=== PATIENT | male | born 1985 | race Caucasian/White ===

== ENCOUNTER 2019-10-31 01:11 | Outpatient (CLI) | payer OTHER, SELFPAY ==
[2019-10-31 18:19] LABS: SARS-CoV-2 RNA PCR Negative
== END 2019-10-31 01:12 | disposition home or self-care (01) ==
LOC: ANHCOVIDDT 01:11
PROVIDERS: PCP Family Medicine Sports Medicine; Visit Provider Otolaryngology
DX: Z01.812 Encounter for preprocedural laboratory examination (principal); Z20.828 Contact with and (suspected) exposure to other viral communicable diseases
CPT/HCPCS: 87635; C9803; U0003

== ENCOUNTER 2019-11-02 01:32 | Day surgery (SDC) | payer OTHER, SELFPAY ==
[2019-10-24 15:27] VITALS: BMI 23.6
--- NOTE | 2019-11-01 08:16 | PM.IMHP ---
H&P: HPI History of Present Illness Date/Time: 11/01/19 08:16 Chief complaint: Chronic Sinusitis/ Nasal Septal Deviation Narrative: Rito Leon is a 34 year old male With past medical history significant for nasal obstruction largely due to septal deviation inferior turbinate hypertrophy as well as chronic sinusitis with recent imaging demonstrating maxillary anterior ethmoidal and frontal sinonasal mucosal thickening. The patient has tried maximal medical therapy and failed. Patient presents today for operative intervention. Reports no new symptoms and/or provoking palliative factors. Review of Systems Review of Systems: Narrative: see clinic note Constitutional: Constitutional: Denies fatigue, Denies fever(s) and Denies lethargy Eyes: Eyes: Denies blurry vision and Denies change in vision ENT: Reports as per HPI Cardiovascular: Cardiovascular: Denies chest pain Respiratory: Respiratory: Denies cough Endocrine: Endocrine: Denies fatigue Hematologic/Lymphatic: Hematologic/Lymphatic: Denies easy bleeding, Denies easy bruising and Denies lymphadenopathy Allergic/Immunologic: Allergic/Immunologic: Denies seasonal rhinorrhea PMFSH Social History Social History Smoking packs per day: 0.5 Smoking cigarettes per day: 10.0 Years smoked: 14 Smoking pack-years: 7.00 Smoking status: Current every day smoker Tobacco type: cigarettes Spiritual care concerns: No Meds Home Medications and Allergies Home Medications Medication Instructions Recorded Confirmed Type fluticasone propionate 50 1 spray NASAL BID #11.1 ml 10/18/19 10/24/19 Rx mcg/actuation nasal spray,suspension multivitamin 1 tablet PO DAILY 10/24/19 10/24/19 History omega 5-muw-slb-fish oil [[place]-3] 1 cap PO DAILY 10/24/19 10/24/19 History Allergies Allergy/AdvReac Type Severity Reaction Status Date / Time No Known Allergies Allergy Verified 10/24/19 15:28 Exam Narrative: Exam Narrative: See clinic note Const: General: cooperative, healthy appearing, comfortable, well developed and alert HENMT: Head: normal to inspection, normocephalic and atraumatic Ears: hearing grossly normal bilaterally, external ears normal, TM's normal bilaterally and EAC's normal General nose exam: Normal external nose present, Normal nares present and Other nasal findings present ( septal deviation and inferior turbinate hypertrophy) Face and sinus: normal facial exam Mouth: Yes Normal oral and palatal mucosa present, Yes lip normal, Yes tongue normal, Yes oropharynx normal and Yes moist mucous membranes Teeth and gingiva: dentition normal and gingiva normal Throat: posterior oropharynx normal, tonsils normal and uvula midline Eyes: General: appearance normal, both eyes and all related structures Periorbital: periorbital findings normal Eyelids: eyelids normal Conjunctivae: conjunctivae normal Sclera: sclerae normal Neck: Neck: normal visual inspection, full ROM and no lymphadenopathy Thyroid: thyroid normal Lymphatic: no lymphadenopathy noted Resp: Effort & Inspection: normal respiratory effort and able to speak in complete sentences Cardio: Jugular venous distension: no JVD Neuro: Cranial nerves: Yes CN's II-XII intact bilaterally Assessment and Plan Assessment and plan (1) Nasal septal deviation: Code(s): J34.2 - Deviated nasal septum Status: Acute Assessment and Plan: plan for OR for endoscopic assisted septoplasty inferior turbinate reduction bilateral maxillary antrostomies bilateral anterior ethmoidectomies and bilateral frontal sinusotomies most likely all without tissue tissue removal. the risks and benefits were explained in great detail to the patient including septal perforation turbinate regrowth change in vision CSF leak and the need for further operative procedures. The patient voiced understanding of these risks and signed the appropriate consent forms. (2) Chronic sinusitis: Cod
[2019-11-02] VITALS (7 sets, daily range): BP systolic 126–155; BP diastolic 82–97; PULSE 60–87; RESP 10–16; TEMP 36–36.5; O2SAT 92–100
[2019-11-02] MEDS: ACETAMINOPHEN 500 MG TABLET 1000 MG PO (06:31)
--- NOTE | 2019-11-02 06:59 | WPDANESEPPF ---
Anes - Initial Pre Proc Eval Procedure: Operation Date: 11/02/19 07:30 Proposed Procedures p Endoscopic Septoplasty, Bilateral Maxillary Antrostomy, Bilateral Anterior Ethmoidectomy, Bilateral Frontal Sinusotomy With Fusion Protocol - Robert Moses MD s Bilateral Inferior Turbinectomy - Robert Moses MD Date/Time: 11/02/19 06:59 Surgeon: Robert Moses MD Pre Op Diagnosis: Chronic Sinusitis/ Nasal Septal Deviation Patient Data Age: 34 Gender: M Height: 5 ft 8 in Weight: 70.31 kg Allergies Allergy/AdvReac Type Severity Reaction Status Date / Time No Known Allergies Allergy Verified 11/02/19 06:28 Home Medications Medication Instructions Recorded Confirmed Type fluticasone propionate 50 1 spray NASAL BID #11.1 ml 10/18/19 11/02/19 Rx mcg/actuation nasal spray,suspension multivitamin 1 tablet PO DAILY 10/24/19 11/02/19 History omega 2-eqr-yrb-fish oil [[place]-3] 1 cap PO DAILY 10/24/19 11/02/19 History Patient hx anesthesia problems: none Family hx anesthesia problems: none PMFSH Social History Social History Smoking packs per day: 0.5 Smoking cigarettes per day: 10.0 Years smoked: 14 Smoking pack-years: 7.00 Smoking status: Current every day smoker Tobacco type: cigarettes Spiritual care concerns: No Anes - Eval Final PreProcedure Day of Procedure 11/02/19 06:59 Patient weight: normal Heart: regular rate and rhythm Lungs: clear to auscultation Airway: Mallampati scale class II Neurological: alert and oriented Last oral intake: >/= 8 hours Emergent: no Anesthetic plan: proceed Anesthesia type and monitoring: general ETT and standard monitoring Informed Consent: The patient's anesthetic plan and its attendant risks and benefits were discussed with the patient/family/POA. Questions were solicited and answers provided to the satisfaction of the patient/family/POA.
--- NOTE | 2019-11-02 07:04 | WPDHPUPDATE1 ---
History and Physical Update Update Date/Time: 11/02/19 07:04 History and Physical has been reviewed, including an updated exam of the patient. There are NO changes in the patient's condition. Risks, benefits, and alternatives have been discussed and questions answered. Patient agrees to proceed with procedure.
--- NOTE | 2019-11-02 07:13 | WPDHPUPDATE1 ---
History and Physical Update Update Date/Time: 11/02/19 07:13 History and Physical has been reviewed, including an updated exam of the patient. There are NO changes in the patient's condition. Risks, benefits, and alternatives have been discussed and questions answered. Patient agrees to proceed with procedure.
[2019-11-02] MEDS: ceFAZolin 2 GM/D5W 50 ML 2 GM/50 ML BAG IVPB (07:16)
[2019-11-02] MEDS: LACTATED RINGERS 1,000 ML 30 ML IV CONT ×2 (07:16→10:08)
[2019-11-02] MEDS: OXYMETAZOLINE HCL 0.05% NAS 15 ML BTL (*BKC) 1 SPRAY NASAL (07:37)
[2019-11-02] MEDS: LIDO 1%/EPINEPHRINE 1:100,000 20 ML VIAL 5 ML INFILTRATE (07:37)
--- NOTE | 2019-11-02 09:53 | PM.PROC ---
Procedure Note - Detailed Date of procedure: 11/02/19 Pre-op diagnosis: Chronic Sinusitis/ Nasal Septal Deviation Post-op diagnosis: same Procedure performed: 1. Endoscopic assisted septoplasty 2. Submucosal resection inferior turbinates 3. Outfracture inferior turbinates 4. Endoscopic maxillary antrostomies without tissue removal 5. Endoscopic anterior ethmoidectomies without tissue removal 6. Endoscopic frontal sinusotomies without tissue removal Description of procedure: the patient was correctly identified and consent was verified in the preoperative holding area. The patient was then brought to the operating room time-out was performed. General anesthesia was induced and anendotracheal tube was secured the patient's airway and taped to the left lower lip. Afrin was then applied to the bilateral nasal passages. Scans were confirmed with the image guided system was initiated. A [place] was utilized to medialized the right middle turbinate and a backbiter was utilized to remove the right uncinate process. Backbiter was then utilized to create a maxillary antrostomy which using a 70 degree scope was confirmed to communicate the natural os. Curette as well as straight through cut and 3 [place] were utilized to perform an anterior ethmoidectomy. Frontal sinus 70 degree scope as well as [place] was utilized to perform a frontal sinusotomy with adequate patency noted removed. A similar procedure was performed on the left side. Hemostasis was achieved using Afrin-soaked pledgets. 8 cc 1% lidocaine with 1 100,000 parts epinephrine was then injected into the bilateral septum in the submucoperichondrial plane. Fifteen blade was utilized to create a left [place] type incision in the mucoperichondrium. The left mucoperichondrium was elevated using a 7 [place] suction as well as caudal elevator. Of note a linear tear was created in the left mucoperichondrium without abutting tear on the right side. The right mucoperichondrium was elevated in a similar fashion. The deviated septum including a significantly deviated left inferior spur was removed using a combination of Janeen high forceps, endoscopic scissors, Isael Tsai double-action forceps and osteotome. The septum was then sutured anteriorly using a 5 plain gut interrupted suture x3. The inferior turbinates were then entered using a 2 mm inferior turbinate blade on the microdebrider and debrided in the submucoperichondrial plane. They were then outfractured [place] elevator. Anoop splints were applied bilaterally after being trimmed and sutured anteriorly using a 3 0 nylon suture. This marked the end of the procedure care the patient was turned over to anesthesiology. Anesthesia: GLMA Surgeon: Robert Moses MD Estimated blood loss (mL): 50 Drains: No Complications: No immediate complications Condition: stable Disposition: PACU Findings: significantly deviated left nasal septum, hypertrophied inferior turbinates, diseased sinonasal mucosa especially in the frontal outflow tract region.
== END 2019-11-02 11:55 | disposition home or self-care (01) ==
PROVIDERS: PCP Family Medicine Sports Medicine; Visit Provider Otolaryngology
PROC: (CPT 30520; principal; 2019-11-02 07:30)
PROC: (CPT 30520; 2019-11-02 07:30)
DX: J34.2 Deviated nasal septum (principal); J32.9 Chronic sinusitis, unspecified; J34.3 Hypertrophy of nasal turbinates
CPT/HCPCS: 30520; 30140; 31254; 31256; A9270; J0360; J0690; J2250; J2270; J2704; J2710; J7120